=== PATIENT | male | born 1945 | race Caucasian/White ===

== ENCOUNTER 2016-04-08 07:14 | Emergency (ER) | payer MEDICARE, BC ==
[2016-04-08] MEDS ORDERED: FENTANYL 50 MCG/HR PATCH TRANSDERM ONE (08:46)
[2016-04-08] MEDS ORDERED: L.E.T. 3 ML SOLUTION TOPICAL ONE (21:20)
== END 2016-04-08 09:20 | disposition home or self-care (01) ==
LOC: ER 07:14